=== PATIENT | male | born 1960 | race Caucasian/White ===

== ENCOUNTER → 2020-08-06 | Outpatient (CLI) | payer BC ==
[~2020-08-06] MED LIST: BARIUM SULFATE 340 GM SUSPENSION. PO ONE; BARIUM SULFATE 60% 355 ML SUSP PO ONE; SIMETHICONE/SOD BICARB/CITRIC ACID PACKET. PO ONE
--- NOTE | 2020-08-06 15:39 | RAD ---
EXAMINATION: Barium swallow study and Upper GI series 08/06/2020 8:26 AM HISTORY: Dysphagia COMPARISON: None. TECHNIQUE: The patient ingested effervescent crystals followed by thick and thin barium and was the e sophagus, stomach, and duodenum were observed under fluoroscopy. FINDINGS: The esophagus is normal in appearance. Normal esophageal mucosa. Normal motility and esophageal diste ntion. No evidence of mass. There is small hiatal hernia. Gastroesophageal reflux was noted intermitt ently. The stomach and duodenum are normal in appearance. Total fluoroscopic time:3 minutes 6 seconds. Dose:60.4 mGy. IMPRESSION: 1. Very small hiatal hernia. 2. Gastroesophageal reflux. 3. Otherwise normal appearance of the esophagus and stomach. Electronically signed by: Jessica Vargas MD (08/06/2020 3:37 PM) [id number]
== END ==
LOC: RAD 09:45
PROVIDERS: ATTEND Internal Medicine Gastroenterology
DX: K44.9 Diaphragmatic hernia without obstruction or gangrene (principal); K21.9 Gastro-esophageal reflux disease without esophagitis; R13.10 Dysphagia, unspecified
CPT/HCPCS: 74220; 74240